=== PATIENT | female | born 1990 | race Caucasian/White ===

== ENCOUNTER 2017-02-22 02:49 | Emergency (ER) | payer OTHER ==
[~2017-02-22] VITALS: Ht 165.1 cm; Wt 61.2 kg
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
--- NOTE | 2017-02-22 02:58 | NUR ---
MD ROMEO AT BED SIDE FOR EVAL
--- NOTE | 2017-02-22 03:22 | NUR ---
Patient discharged to police custody in stable condition. Written and verbal after care instructions given. Patient verbalizes understanding of instruction. Patient is ambulatory with steady gait, no further complaints.
[2017-02-22 03:23] VITALS: BP 160/89
== END 2017-02-22 03:25 ==
LOC: ER 02:50
DX: F10.129 Alcohol abuse with intoxication, unspecified (principal); Z88.0 Allergy status to penicillin
CPT/HCPCS: 82962-TC; A4606; Z7610